=== PATIENT | female | born 1945 | race Caucasian/White ===

== ENCOUNTER 2017-06-05 05:32 | Inpatient (IN) ==
[2017-06-05] MEDS ORDERED: ceFAZolin 1,000 MG in SYRINGE 1 EACH IV ONE (06:00)
[2017-06-05] MEDS ORDERED: ceFAZolin 1,000 MG VIAL ONE (06:32)
[2017-06-05] MEDS: LACTATED RINGERS 1,000 ML IV SCH ×4 (06:32→18:35)
[2017-06-05 07:28] LABS: Osmolality,Calculated 263.7 MOS/KG (273-304); Potassium 4.2 MMOL/L (3.5-5.1)
[2017-06-05] MEDS ORDERED: MIDAZOLAM 2 MG/2 ML VIAL ONE (10:11)
[2017-06-05] MEDS ORDERED: ONDANSETRON 4 MG/2 ML VIAL IV PRN ×2 (10:11→10:54)
[2017-06-05] MEDS ORDERED: fentaNYL 100 MCG/2 ML VIAL ONE (10:11)
[2017-06-05] MEDS ORDERED: SEVOFLURANE 1 UNIT/15 MINUTE INH ONE (10:11)
[2017-06-05] MEDS ORDERED: PROPOFOL 200 MG/20 ML VIAL IV ONE (10:11)
[2017-06-05] MEDS ORDERED: ROCURONIUM 100 MG/10 ML VIAL IV ONE (10:12)
[2017-06-05] MEDS ORDERED: NEOSTIGMINE 10 MG/10 ML VIAL ONE (10:12)
[2017-06-05] MEDS ORDERED: SODIUM CHLORIDE 0.9% 100 ML IV ONE (10:12)
[2017-06-05] MEDS ORDERED: GLYCOPYRROLATE 0.4 MG/2 ML VIAL ONE (10:12)
[2017-06-05] MEDS: HYDROmorphone 2 MG/1 ML VIAL IV PRN ×2 (10:15→10:20)
[2017-06-05] MEDS ORDERED: GLUCAGON 1 MG VIAL IM PRN (10:54)
[2017-06-05] MEDS ORDERED: DEXTROSE 50% 25 GM/50 ML VIAL IV PRN (10:54)
[2017-06-05] MEDS ORDERED: HYDROmorphone 2 MG/1 ML VIAL IV PRN (11:15)
[2017-06-05] MEDS ORDERED: ALBUTEROL 2.5 MG/3 ML NEB RESP TX PRN (11:15)
[2017-06-05] MEDS ORDERED: PROMETHAZINE 25 MG/1 ML VIAL IM PRN (11:15)
[2017-06-05] MEDS: INSULIN REGULAR 100 UNIT/ML SUBCUT SCH ×3 (11:32→21:19)
[2017-06-05] MEDS: KETOROLAC 15 MG/1 ML VIAL IV SCH ×2 (11:32→17:07)
[2017-06-06] MEDS: KETOROLAC 15 MG/1 ML VIAL IV SCH ×4 (00:51→17:41)
[2017-06-06] MEDS: LACTATED RINGERS 1,000 ML IV SCH ×5 (01:56→20:57)
[2017-06-06 05:01] LABS: Basophils % 0.3 % (0.0-0.8); Eosinophils # 0.1 10*3/uL (0.0-0.87); Eosinophils % 0.5 % (0.00-10.9); Hematocrit 31.5 VOL% (35.7-47.0); Immature Granulocytes % 0.7 %; Immature Granulocytes Absolute 0.09 #; Lymphocytes # 1.9 10*3/uL (1.4-4.0); Lymphocytes % 14.4 % (21.3-54.2); Mean Corpuscular HGB Conc 34.9 GM/DL (32-36); Mean Corpuscular Hemoglobin 32 PG (27-34); Mean Corpuscular Volume 91.3 FL (87-102); Mean Platelet Volume 9.9 FL (9.6-12.0); Monocytes % 7.4 % (1.7-12.7); Neutrophils # 10.2 10*3/uL (1.4-7.4); Neutrophils % 76.7 % (38.7-73.9); Platelet Count 303 T/CUMM (130-400); Red Blood Count 3.45 MC/CUMM (3.8-5.5); Red Cell Distribution Width 12.7 % (9.3-17.3); White Blood Count 13.3 T/CUMM (4-12)
[2017-06-06 05:39] LABS: Calcium 8.2 MG/DL (8.5-10.1); Osmolality,Calculated 262.5 MOS/KG (273-304); Potassium 4.3 MMOL/L (3.5-5.1)
[2017-06-06] MEDS: ENOXAPARIN 40 MG/0.4 ML SYRINGE SUBCUT SCH (06:52)
[2017-06-06] MEDS: MONTELUKAST 10 MG TABLET PO SCH (09:26)
[2017-06-06] MEDS: PANTOPRAZOLE 40 MG VIAL IV SCH (09:26)
[2017-06-06] MEDS: VALSARTAN 160 MG TABLET PO SCH (09:26)
[2017-06-06] MEDS: MULTIVITAMIN (CENTRUM) TABLET PO SCH (09:26)
[2017-06-06] MEDS: ASPIRIN 325 MG TABLET PO SCH (09:26)
[2017-06-06] MEDS: hydroCHLOROthiazide 12.5 MG CAPSULE PO SCH (09:26)
[2017-06-06] MEDS: amLODIPine 5 MG TABLET PO SCH (09:27)
[2017-06-06] MEDS: INSULIN REGULAR 100 UNIT/ML SUBCUT SCH ×4 (09:29→20:28)
[2017-06-07] MEDS: KETOROLAC 15 MG/1 ML VIAL IV SCH ×2 (00:39→06:16)
[2017-06-07] MEDS: LACTATED RINGERS 1,000 ML IV SCH ×4 (03:38→21:04)
[2017-06-07 04:40] LABS: Basophils % 0.2 % (0.0-0.8); Eosinophils # 0.1 10*3/uL (0.0-0.87); Eosinophils % 0.6 % (0.00-10.9); Hematocrit 27.3 VOL% (35.7-47.0); Hemoglobin 9.5 GM/DL (12.0-16.0); Immature Granulocytes % 0.8 %; Lymphocytes # 1.5 10*3/uL (1.4-4.0); Lymphocytes % 11.8 % (21.3-54.2); Mean Corpuscular HGB Conc 34.8 GM/DL (32-36); Mean Corpuscular Hemoglobin 32 PG (27-34); Mean Corpuscular Volume 92.5 FL (87-102); Mean Platelet Volume 10.1 FL (9.6-12.0); Monocytes # 0.8 10*3/uL (0.11-0.8); Monocytes % 6.4 % (1.7-12.7); Neutrophils % 80.2 % (38.7-73.9); Platelet Count 275 T/CUMM (130-400); Red Blood Count 2.95 MC/CUMM (3.8-5.5); Red Cell Distribution Width 13.2 % (9.3-17.3); White Blood Count 12.5 T/CUMM (4-12)
[2017-06-07 05:23] LABS: Calcium 8.1 MG/DL (8.5-10.1); Magnesium 1.7 MG/DL (1.8-2.4); Osmolality,Calculated 262.8 MOS/KG (273-304); Potassium 4.7 MMOL/L (3.5-5.1)
[2017-06-07] MEDS: ENOXAPARIN 40 MG/0.4 ML SYRINGE SUBCUT SCH (06:16)
[2017-06-07] MEDS: LEVOTHYROXINE 75 MCG TABLET PO SCH (06:17)
[2017-06-07] MEDS: INSULIN REGULAR 100 UNIT/ML SUBCUT SCH ×4 (08:10→21:24)
[2017-06-07] MEDS: VALSARTAN 160 MG TABLET PO SCH (10:59)
[2017-06-07] MEDS: amLODIPine 5 MG TABLET PO SCH (10:59)
[2017-06-07] MEDS: hydroCHLOROthiazide 12.5 MG CAPSULE PO SCH (11:00)
[2017-06-07] MEDS: ASPIRIN 325 MG TABLET PO SCH (11:00)
[2017-06-07] MEDS: MONTELUKAST 10 MG TABLET PO SCH (11:01)
[2017-06-07] MEDS: MULTIVITAMIN (CENTRUM) TABLET PO SCH (11:01)
[2017-06-07] MEDS: PANTOPRAZOLE 40 MG VIAL IV SCH (11:02)
[2017-06-07] MEDS: DORNASE ALFA 2.5 MG/2.5 ML VIAL RESP TX SCH ×2 (12:31→21:23)
[2017-06-07] MEDS ORDERED: ALBUTEROL/IPRATROPIUM 3 ML NEB RESP TX SCH (12:45)
[2017-06-07] MEDS: ALBUTEROL/IPRATROPIUM 3 ML NEB RESP TX SCH ×3 (12:48→20:52)
[2017-06-07] MEDS ORDERED: ALBUTEROL/IPRATROPIUM 3 ML NEB RESP TX PRN (12:52)
[2017-06-07] MEDS ORDERED: MAGNESIUM SULF RIDER 4 GM in PREMIX 1 EACH IV PRN (13:49)
[2017-06-07] MEDS ORDERED: MAGNESIUM SULF RIDER 2 GM in PREMIX 1 EACH IV PRN (13:49)
[2017-06-07] MEDS: SUCRALFATE 1 GM TABLET PO SCH ×3 (14:40→21:04)
[2017-06-08] MEDS: ENOXAPARIN 40 MG/0.4 ML SYRINGE SUBCUT SCH (06:33)
[2017-06-08 07:27] LABS: Calcium 8.2 MG/DL (8.5-10.1); Magnesium 2.1 MG/DL (1.8-2.4); Osmolality,Calculated 269.2 MOS/KG (273-304); Potassium 4.7 MMOL/L (3.5-5.1)
[2017-06-08] MEDS: ALBUTEROL/IPRATROPIUM 3 ML NEB RESP TX SCH ×4 (07:43→20:34)
[2017-06-08] MEDS: DORNASE ALFA 2.5 MG/2.5 ML VIAL RESP TX SCH ×2 (07:43→20:41)
[2017-06-08 09:21] LABS: Basophils % 0.2 % (0.0-0.8); Eosinophils # 0.2 10*3/uL (0.0-0.87); Hematocrit 28.2 VOL% (35.7-47.0); Hemoglobin 9.7 GM/DL (12.0-16.0); Immature Granulocytes % 0.7 %; Immature Granulocytes Absolute 0.07 #; Lymphocytes # 1.7 10*3/uL (1.4-4.0); Lymphocytes % 17.5 % (21.3-54.2); Mean Corpuscular HGB Conc 34.4 GM/DL (32-36); Mean Corpuscular Hemoglobin 32 PG (27-34); Mean Corpuscular Volume 93.4 FL (87-102); Mean Platelet Volume 10.2 FL (9.6-12.0); Monocytes # 0.7 10*3/uL (0.11-0.8); Monocytes % 6.6 % (1.7-12.7); Neutrophils # 7.2 10*3/uL (1.4-7.4); Platelet Count 274 T/CUMM (130-400); Red Blood Count 3.02 MC/CUMM (3.8-5.5); Red Cell Distribution Width 13.5 % (9.3-17.3); White Blood Count 9.8 T/CUMM (4-12)
[2017-06-08 09:34] LABS: ABG Base Excess 1.1 MMOL/L (-2.5-2.5); ABG HCO3 25.3 MMOL/L (20-26); ABG Oxygen Saturation 91.9 % (95-100); ABG PCO2 38.1 MM HG (35-48); ABG PO2 67.4 MM HG (80-95); ABG TCO2 23.1 MMOL/L (23-27)
[2017-06-08] MEDS: INSULIN REGULAR 100 UNIT/ML SUBCUT SCH ×4 (10:36→22:37)
[2017-06-08] MEDS: VALSARTAN 160 MG TABLET PO SCH (10:58)
[2017-06-08] MEDS: LEVOTHYROXINE 75 MCG TABLET PO SCH (10:59)
[2017-06-08] MEDS: ASPIRIN 325 MG TABLET PO SCH (10:59)
[2017-06-08] MEDS: MULTIVITAMIN (CENTRUM) TABLET PO SCH (11:02)
[2017-06-08] MEDS: MONTELUKAST 10 MG TABLET PO SCH (11:02)
[2017-06-08] MEDS: amLODIPine 5 MG TABLET PO SCH (11:03)
[2017-06-08] MEDS: hydroCHLOROthiazide 12.5 MG CAPSULE PO SCH (11:03)
[2017-06-08] MEDS: SUCRALFATE 1 GM TABLET PO SCH ×4 (11:04→22:39)
[2017-06-08] MEDS: PANTOPRAZOLE 40 MG VIAL IV SCH (11:06)
[2017-06-08] MEDS: LACTATED RINGERS 1,000 ML IV SCH (11:09)
[2017-06-09 04:47] LABS: Allen Test Positive
[2017-06-09 04:48] LABS: ABG Base Excess 3.1 MMOL/L (-2.5-2.5); ABG HCO3 27.1 MMOL/L (20-26); ABG Oxygen Saturation 91.4 % (95-100); ABG PCO2 45.2 MM HG (35-48); ABG PH 7.404 (7.35-7.45); ABG TCO2 26.2 MMOL/L (23-27)
[2017-06-09 05:33] LABS: Calcium 8.1 MG/DL (8.5-10.1); Magnesium 1.9 MG/DL (1.8-2.4); Osmolality,Calculated 273.8 MOS/KG (273-304); Potassium 4.3 MMOL/L (3.5-5.1)
[2017-06-09] MEDS: ENOXAPARIN 40 MG/0.4 ML SYRINGE SUBCUT SCH (06:43)
[2017-06-09] MEDS: DORNASE ALFA 2.5 MG/2.5 ML VIAL RESP TX SCH ×2 (07:07→20:28)
[2017-06-09] MEDS: ALBUTEROL/IPRATROPIUM 3 ML NEB RESP TX SCH ×4 (07:07→20:15)
[2017-06-09] MEDS: INSULIN REGULAR 100 UNIT/ML SUBCUT SCH ×4 (08:57→21:47)
[2017-06-09] MEDS: SUCRALFATE 1 GM TABLET PO SCH ×4 (11:53→21:45)
[2017-06-09] MEDS: hydroCHLOROthiazide 12.5 MG CAPSULE PO SCH (12:08)
[2017-06-09] MEDS: VALSARTAN 160 MG TABLET PO SCH (12:08)
[2017-06-09] MEDS: ASPIRIN 325 MG TABLET PO SCH (12:09)
[2017-06-09] MEDS: MONTELUKAST 10 MG TABLET PO SCH (12:09)
[2017-06-09] MEDS: LEVOTHYROXINE 75 MCG TABLET PO SCH (12:10)
[2017-06-09] MEDS: amLODIPine 5 MG TABLET PO SCH (12:10)
[2017-06-09] MEDS: MULTIVITAMIN (CENTRUM) TABLET PO SCH (12:11)
[2017-06-09] MEDS: PANTOPRAZOLE 40 MG VIAL IV SCH (12:11)
[2017-06-10] MEDS: ENOXAPARIN 40 MG/0.4 ML SYRINGE SUBCUT SCH (05:12)
[2017-06-10] MEDS: ALBUTEROL/IPRATROPIUM 3 ML NEB RESP TX SCH ×4 (07:40→20:44)
[2017-06-10] MEDS: DORNASE ALFA 2.5 MG/2.5 ML VIAL RESP TX SCH ×2 (07:46→20:44)
[2017-06-10] MEDS: INSULIN REGULAR 100 UNIT/ML SUBCUT SCH ×4 (07:50→21:44)
[2017-06-10] MEDS: SUCRALFATE 1 GM TABLET PO SCH ×4 (07:55→21:21)
[2017-06-10] MEDS: LEVOTHYROXINE 75 MCG TABLET PO SCH (07:55)
[2017-06-10] MEDS: MULTIVITAMIN (CENTRUM) TABLET PO SCH (09:39)
[2017-06-10] MEDS: PANTOPRAZOLE 40 MG VIAL IV SCH (09:39)
[2017-06-10] MEDS: ASPIRIN 325 MG TABLET PO SCH (09:39)
[2017-06-10] MEDS: VALSARTAN 160 MG TABLET PO SCH (09:39)
[2017-06-10] MEDS: hydroCHLOROthiazide 12.5 MG CAPSULE PO SCH (09:39)
[2017-06-10] MEDS: amLODIPine 5 MG TABLET PO SCH (09:39)
[2017-06-10] MEDS: POLYETHYLENE GLYCOL POWDER 17 GM PACK PO SCH (09:40)
[2017-06-10] MEDS: MONTELUKAST 10 MG TABLET PO SCH (09:40)
[2017-06-10] MEDS: LACTATED RINGERS 1,000 ML IV SCH (12:49)
[2017-06-11 05:15] LABS: Basophils % 0.4 % (0.0-0.8); Eosinophils # 0.3 10*3/uL (0.0-0.87); Hematocrit 26.3 VOL% (35.7-47.0); Hemoglobin 8.8 GM/DL (12.0-16.0); Immature Granulocytes % 1.7 %; Immature Granulocytes Absolute 0.13 #; Lymphocytes # 1.3 10*3/uL (1.4-4.0); Lymphocytes % 16.6 % (21.3-54.2); Mean Corpuscular HGB Conc 33.5 GM/DL (32-36); Mean Corpuscular Hemoglobin 32 PG (27-34); Mean Corpuscular Volume 94.3 FL (87-102); Mean Platelet Volume 9.3 FL (9.6-12.0); Monocytes # 0.7 10*3/uL (0.11-0.8); Monocytes % 8.7 % (1.7-12.7); Neutrophils # 5.4 10*3/uL (1.4-7.4); Neutrophils % 68.6 % (38.7-73.9); Platelet Count 346 T/CUMM (130-400); Red Blood Count 2.79 MC/CUMM (3.8-5.5); Red Cell Distribution Width 13.6 % (9.3-17.3); White Blood Count 7.8 T/CUMM (4-12)
[2017-06-11] MEDS: ENOXAPARIN 40 MG/0.4 ML SYRINGE SUBCUT SCH (06:18)
[2017-06-11] MEDS: LEVOTHYROXINE 75 MCG TABLET PO SCH (06:42)
[2017-06-11] MEDS: ALBUTEROL/IPRATROPIUM 3 ML NEB RESP TX SCH ×2 (07:04→11:00)
[2017-06-11] MEDS: DORNASE ALFA 2.5 MG/2.5 ML VIAL RESP TX SCH (07:09)
[2017-06-11] MEDS: INSULIN REGULAR 100 UNIT/ML SUBCUT SCH ×2 (07:48→11:52)
[2017-06-11] MEDS: POLYETHYLENE GLYCOL POWDER 17 GM PACK PO SCH (09:20)
[2017-06-11] MEDS: VALSARTAN 160 MG TABLET PO SCH (09:21)
[2017-06-11] MEDS: MULTIVITAMIN (CENTRUM) TABLET PO SCH (09:21)
[2017-06-11] MEDS: hydroCHLOROthiazide 12.5 MG CAPSULE PO SCH (09:21)
[2017-06-11] MEDS: MONTELUKAST 10 MG TABLET PO SCH (09:22)
[2017-06-11] MEDS: ASPIRIN 325 MG TABLET PO SCH (09:22)
[2017-06-11] MEDS: amLODIPine 5 MG TABLET PO SCH (09:22)
[2017-06-11] MEDS: SUCRALFATE 1 GM TABLET PO SCH ×2 (09:22→11:52)
[2017-06-11] MEDS: PANTOPRAZOLE 40 MG VIAL IV SCH (09:23)
[2017-06-11 16:43] VITALS: BP 140/71
== END 2017-06-11 16:30 | disposition swing bed (61) | DRG 354 ==
LOC: N.OR 05:32 → N.SDSINP 05:34 → N.3E 10:54
PROVIDERS: ADMIT Surgery; ATTEND Surgery